=== PATIENT | female | born 1985 | race Caucasian/White ===

== ENCOUNTER 2016-07-27 15:21 | Inpatient (IN) ==
[2016-07-27] MEDS ORDERED: Naloxone 0.4 MG/ML INJ IVP PRN (15:50)
--- NOTE | 2016-07-27 16:04 | OB/GYN Progress Note ---
Date of Encounter: 07/27/16 Time of Encounter: 15:57 - Assessment and Plan (1) Status post vaginal delivery Current Visit: Yes Status: Acute admit patient (2) First degree perineal laceration during delivery Current Visit: Yes Status: Acute repaired with 3-0 vicryl (3) Breast feeding status of mother Current Visit: Yes Status: Acute support and consultation when patient is ready Subjective - Subjective Principal diagnosis: status post vaginal delivery Interval history: Patient is 30 y/o that presented to labor and delivery via squad after delivery at home. Patient was 36 weeks gestation and had a cervical exam earlier today with Dr. Zimmerman. Will request records. GBS status unknown. Patient denies any problems with current or past . Patient delivered male infant at approximately 1410 her delivered in their bed. Cord was clamped and cut by paramedics however, placenta was still intact. Patient was placed in lithotomy position and placenta delivered spontaneously and intact. Pitocin was started per protocol. Three vessels were noted in cord and cord blood was obtained. A first degree perineal laceration was noted. 1% lidocaine was used to anesthetize the site and repaired with 3-0 vicryl in usual sterile fashion. Uterus was firm U/3. Pericare provided and ice pack to perineum. Both and mother were stable in LDR for recovery. a 100cc EBL was noted. Patient reports: appetite normal, voiding normally, pain well controlled, ambulating normally Objective - Exam Lungs: bilateral: normal Chest: Normal S1, Normal S2 Extremities: Present: normal Abdomen: Present: normal appearance Consult Discharge Plan - Plan Referrals: NO,PCP [Primary Care Provider] -
--- NOTE | 2016-07-27 16:40 | OB/GYN History & Physical ---
Date of Encounter: 07/27/16 Time of Encounter: 16:35 Assessment and Plan (1) Status post vaginal delivery Current visit: Yes Status: Acute Continue routine care (2) First degree perineal laceration during delivery Current visit: Yes Status: Acute Ice pack to perineum Motrin for pain (3) Breast feeding status of mother Current visit: Yes Status: Acute support History of Present Illness Chief complaint: status post vaginal delivery at home HPI: Ms. Shetty is a 30 year old female at 36 weeks gestation presents to labor and delivery after delivering at home. Patient [facility]. Patient denies any complications with current or past . Will request records. Past Med Surg Social Fam HX - Past Medical History Source: patient Medical history: no medical history Psychiatric history: no psych history - Past Surgical History Surgical History: other (Right Femur fracture) - Social History Smoking Status: Never smoker Smokeless Tobacco Status: No Alcohol use: none Drug use: none Current living situation: Home - Independent Activity Level: Independent ambulation Recent Out of Country Travel Within the Last 8 Weeks: No Exposure or Possible Exposure to Illness During Travel: No Obstetrical History - Pregnancies : 2 Para: 2 Term: 1 : 1 Ab's: 0 Livin Medications and Allergies Pnv95/Ferrous Fumarate/FA [ Caplet] 1 tab PO DAILY 07/27/16 [History] Allergies No Known Allergies Allergy (Verified 07/27/16 16:16) Review of System OB - Constitutional Constitutional ROS IM: no chills, no fever(s), no headache(s) - Cardiovascular Cardiovascular: no chest pain, no palpitations, no syncope - Respiratory Respiratory: no dyspnea - Gastrointestinal Gastrointestinal: no diarrhea, no heartburn, no nausea, no vomiting - Genitourinary Genitourinary: no dysuria, no flank pain, no urinary frequency, no urinary incontinence Exam - Constitutional Constitutional: well developed, well nourished, no acute distress - HEENT HEENT: Normocephaly, Mucus Membranes Moist - Neck Neck exam: full ROM, supple - Lungs Respiratory exam: CTAB - Cardiovascular Cardiovascular exam: rubs, +S1, +S2 - Abdomen Abdomen: Present: bowel sounds normal, gravid, non tender - Extremities Extremities exam: normal capillary refill, normal inspection Deep Tendon Reflex Grade: 2+ Normal (no clonus) - Anus/Rectum Anus/Rectum: Present: normal perianal skin - Comments Comments: moderate lochia, no blood clots noted. Results All other labs normal. - VTE Reasons for not Prescribing Prophylaxis: Treatment not Indicated - Low risk for VTE
[2016-07-27] MEDS ORDERED: Oxytocin 20 units/ LR 1000 mL 20 UNIT/1,000 ML BAG IVC ONE ×2 (17:42→20:16)
[2016-07-27] MEDS ORDERED: *HR* HYDROcodone/Acet 5/325 mg TABLET PO PRN (20:16)
[2016-07-27] MEDS ORDERED: Measles/Mumps/Rubella Vacc 0.5 ML VIAL SQ PRN (20:16)
[2016-07-27] MEDS ORDERED: Acetaminophen 325 MG TABLET PO PRN (20:16)
[2016-07-27] MEDS ORDERED: Oxytocin 20 units/ LR 1000 mL 20 UNIT/1,000 ML BAG IV SCH (20:16)
[2016-07-27] MEDS ORDERED: Rho Immune Globulin 1,500 UNIT SYRINGE IM PRN (20:16)
[2016-07-27] MEDS: Ibuprofen 600 MG TABLET PO PRN (20:24)
[2016-07-28] MEDS: Ibuprofen 600 MG TABLET PO PRN (03:45)
[2016-07-28 04:28] LABS: Basophils % 0.3 %; Eosinophils % 0.4 %; Hematocrit 27.9 % (35.3-44.9); Hemoglobin 9.3 g/dL (11.5-15.4); Immature Granulocytes % 0.6 % (0-4); Lymphocytes # 1.5 K/mcL (0.6-4.6); Lymphocytes % 14.7 %; Mean Corpuscular HGB Conc 33.3 g/dL (31.6-35.5); Mean Corpuscular Hemoglobin 27.8 pg (28.0-33.3); Mean Corpuscular Volume 83.3 fL (83.0-100.0); Mean Platelet Volume 10.8 fL (9.4-12.4); Monocytes # 0.6 K/mcL (0.0-1.3); Monocytes % 5.7 %; Neutrophils # 8.1 K/mcL (1.6-8.9); Platelet Count 179 K/mcL (140-400); Red Blood Count 3.35 M/mcL (3.82-4.97); Red Cell Distribution Width 12.9 % (11.5-14.5); Segmented Neutrophils % 78.3 %
[2016-07-28] MEDS ORDERED: Prenatal Vit/FA 1 EACH TABLET PO SCH (09:00)
--- NOTE | 2016-07-28 10:42 | Discharge Summary ---
Date of Encounter: 07/28/16 Time of Encounter: 10:39 - Discharge Diagnosis (1) Status post vaginal delivery Priority: Primary Status: Acute Comments: Continue routine care discharge home today follow up with Dr. Zimmerman in 4-6 weeks (2) First degree perineal laceration during delivery Priority: Secondary Status: Acute Comments: Continue routine perineal care (3) Breast feeding status of mother Priority: Secondary Status: Acute Comments: support provided. - Discharge Medications Prescriptions: Ibuprofen [Motrin] 600 mg PO Q6HR PRN #60 tablet PRN Reason: Cramping Home Medications: Pnv95/Ferrous Fumarate/FA [ Caplet] 1 tab PO DAILY 07/27/16 [History] Ibuprofen [Motrin] 600 mg PO Q6HR PRN #60 tablet 07/28/16 [Rx] Allergies/Adverse Reactions: Allergies No Known Allergies Allergy (Verified 07/27/16 16:16) Data Procedures and tests throughout hospitalization: Laboratory Tests 07/28/16 04:05 WBC 10.3 RBC 3.35 L Hgb 9.3 L Hct 27.9 L MCV 83.3 MCH 27.8 L MCHC 33.3 RDW 12.9 Plt Count 179 MPV 10.8 Immature Gran % 0.6 Seg Neutrophils % 78.3 Lymphocytes % 14.7 Monocytes % 5.7 Eosinophils % 0.4 Basophils % 0.3 Neutrophils # 8.1 Lymphocytes # 1.5 Monocytes # 0.6 Eosinophils # 0.0 Basophils # 0.0 Labs on day of discharge: Labs from last 24 hours 07/28/16 04:05 WBC 10.3 RBC 3.35 L Hgb 9.3 L Hct 27.9 L MCV 83.3 MCH 27.8 L MCHC 33.3 RDW 12.9 Plt Count 179 MPV 10.8 Immature Gran % 0.6 Seg Neutrophils % 78.3 Lymphocytes % 14.7 Monocytes % 5.7 Eosinophils % 0.4 Basophils % 0.3 Neutrophils # 8.1 Lymphocytes # 1.5 Monocytes # 0.6 Eosinophils # 0.0 Basophils # 0.0 Date of admission: 07/27/16 15:21 Primary care physician: PCP NO Consults: 07/27/16 20:16 Consult to Diamond Assorter [CONS] Routine Comment: Vaginal delivery, consult needed Discharging clinician: Alyx Zamorano Anticipated date of discharge: 07/28/16 - Patient Status Disposition: Home, Self-Care Condition: Good Functional capacity at discharge: independent ambulation - Discharge Instructions Follow Up With: ANTONIO,PCP [Primary Care Provider] - Nereyda Zimmerman MD [Non-Partnered Physician] - - Diet and Activity Activity: increase activity as tolerated Diet: regular diet Hospital Course Reason for admission: other ( at home) Delivery: Episiotomy: none Laceration: 1st degree Other procedures: none complications: none Discharge diagnosis: delivery [place] baby: male (breast feeding) Time Attestation: Total time spent providing and/or coordinating discharge services: Time Spent: Less than 30 minutes Exam - Constitutional Vitals: Temp Pulse Resp BP Pulse Ox 98.6 F 59 16 101/59 98 07/28/16 08:00 07/28/16 08:00 07/28/16 08:00 07/28/16 08:00 07/28/16 00:10 General appearance IM: A&O X 3, pleasant, answers questions appropriately - Respiratory Respiratory exam: Present: CTAB - Cardiovascular Cardiovascular exam IM: Present: RRR, +S1, +S2 - GI/Abdominal GI/Abdominal exam IM: normal bowel sounds - Uterine Tone: Firm Uterus Position: 2 Fingers Below Umbilicus, Midline - Extremities Exam Extremities exam IM: Present: normal capillary refill, normal inspection - Neurological Exam Neurological exam: oriented X3, reflexes normal
[2016-07-28 16:23] VITALS: BP 108/68
== END 2016-07-28 18:17 | disposition home or self-care (01) | DRG 546 ==
LOC: 1NENULAB 15:21 → 1NENUOBS 18:58